=== PATIENT | female | born 1960 | race African-American/Black ===

== ENCOUNTER 2022-01-11 11:51 | Emergency (ER) | payer SELFPAY ==
[~2022-01-11] VITALS: Ht 162.6 cm; Wt 122.7 kg
[2022-01-11] MEDS ORDERED: IBUPROFEN 200 MG TABLET. PO ONE (13:00)
--- NOTE | 2022-01-11 13:35 | PHYS DOC ---
Past Medical History Additional Past Medical Histor: OBESITY Past Surgical History: Hysterectomy Smoking Status: Never Smoker Alcohol Use: None General Adult EDM: Chief Complaint: MECHANICAL FALL HPI: HPI: Patient is a 61 year old female who presents with was [place] [employer] [place] when she was in the bathroom and slipped on some water on the floor. States that she landed more so on her right lower back area. She complains of neck pain. Patient also complains of left knee pain. She was able to get up and ambulate. She denies any loss of bowel bladder, focal weakness, numbness and tingling, hitting her head, syncope, headache, dizziness, chest pain, shortness of air, abdominal pain, nausea, vomiting, diarrhea, recent illness. She rates her pain a throbbing 6 out of 10. She has a history of hysterectomy and obesity. Review of Systems: Review of Systems: Constitutional: Denies fever or chills. [] Eyes: Denies change in visual acuity. [] HENT: Denies nasal congestion or sore throat. [] Respiratory: Denies cough or shortness of breath. [] Cardiovascular: Denies chest pain or edema. [] GI: Denies abdominal pain, nausea, vomiting, bloody stools or diarrhea. [] : Denies dysuria. [] Musculoskeletal: + back pain or + left knee joint pain. + Neck pain [] Integument: Denies rash. [] Neurologic: Denies headache, focal weakness or sensory changes. [] Endocrine: Denies polyuria or polydipsia. [] Lymphatic: Denies swollen glands. [] Psychiatric: Denies depression or anxiety. [] Heart Score: C/O Chest Pain: No Current Medications: Current Medications Medications (Trade) Dose Ordered [facility] Start Time Stop Time Status Last Admin Dose Admin Ibuprofen (Motrin) 600 mg 1X ONCE 01/11/22 13:00 01/11/22 13:01 DC Allergies: Allergies: Allergies Coded Allergies Type Severity Reaction Last Updated Verified sulfamethoxazole Allergy Intermediate PALPITATIONS 01/11/22 Yes trimethoprim Allergy Intermediate PALPITATIONS 01/11/22 Yes Physical Exam: PE: Constitutional: Well developed, well nourished, no acute distress, non-toxic appearance. [] HENT: Normocephalic, atraumatic, bilateral external ears normal, oropharynx moist, no oral exudates, nose normal. [] Eyes: PERRLA, EOMI, conjunctiva normal, no discharge. [] Neck: Normal range of motion, mid neck tenderness, supple, no stridor. [] Cardiovascular:Heart rate regular rhythm, no murmur [] Lungs & Thorax: Bilateral breath sounds clear to auscultation [] Abdomen: Bowel sounds normal, soft, no tenderness, no masses, no pulsatile masses. [] Skin: Warm, dry, no erythema, no rash. [] Back: mid lower back tenderness, no CVA tenderness. [] Extremities: No tenderness, no cyanosis, no clubbing, ROM intact, no edema. [] Neurologic: Alert and oriented X 3, normal motor function, normal sensory func tion, no focal deficits noted. [] Psychologic: Affect normal, judgement normal, mood normal. [] Current Patient Data: Vital Signs: Vital Signs Date Time Temp Pulse Resp B/P (MAP) Pulse Ox O2 Delivery O2 Flow Rate FiO2 01/11/22 12:06 98.2 96 18 167/97 (120) 98 Room Air 98.2 EKG: EKG: [] Radiology/Procedures: Radiology/Procedures: [] Impression: [facility] [address] [place] [address] IMAGING REPORT Signed PATIENT: MARIAA SALEH AACCOUNT: [id number] : 1960 LOCATION: ER AGE: 61 SEX: F EXAM STATUS: PRE ER ORD. PHYSICIAN: LEO MONTES APRN REASON: FALL, PAIN ON LEFT KNEE, ANTERIOR AND MEDIAL SIDE PROCEDURE: KNEE LEFT 4V Left knee 3 views. HISTORY: Fall pain left knee 3 views were taken left knee. There is not evidence of an acute fracture. There is no joint effusion. There is mild spurring on the patella. There is mild spurring and joint space narrowing in the medial joint compartment. IMPRESSION: 1. Mild osteoarthritis left knee. 2. No acute fracture. Electronically signed by: Randy Driscoll MD (01/11/2022 1:30 PM) [facility] DICTATED and SIGNED BY: RANDY DRISCOLL MD DATE: 01/11/22 1329 [facility] [address] [place] [address] IMAGING REPORT Signed PATIENT: MARIAA SALEH AACCOUNT: [id number] : 1960 LOCATION: ER AGE: 61 SEX: F EXAM STATUS: REG ER ORD. PHYSICIAN: LEO MONTES APRN REASON: SLIPPED AND FELL, PAIN PROCEDURE: CT HEAD AND CERVICAL SPINE WO CT HEAD AND C-SPINE WO History: Slip and fall. Pain. Comparison: None. Technique: Noncontrast CT of the head and cervical spine. Findings: CT HEAD: There is no evidence for intracranial mass or hemorrhage. There is no hydrocephalus or midline shift. No abnormal extra-axial fluid collections are present. No evidence of acute territorial infarction. The visualized paranasal sinuses and mastoid air cells are clear. The skull and scalp are within normal limits. CT CERVICAL SPINE: There is no evidence for fracture in the cervical spine. Alignment is normal. Mild degenerative changes of the lower cervical spine with marginal osteophytes and mild disc space narrowing. No destructive osseous lesions are seen. Limited evaluation of the soft tissues of the neck and of the upper chest is unremarkable. Impression: 1. No acute intracranial findings. 2. No acute osseous abnormality in the cervical spine. ------- Exposure: One or more of the following individualized dose reduction techniques were utilized for this examination: 1. Automated exposure control 2. Adjustment of the mA and/or kV according to patient size 3. Use of iterative reconstruction technique. Electronically signed by: Oswaldo Bonner MD (01/11/2022 2:12 PM) [id number] DICTATED and SIGNED BY: OSWALDO BONNER MD DATE: 01/11/22 1403 [facility] [address] [facility] [place] [address] IMAGING REPORT Signed PATIENT: MARIAA SALEH AACCOUNT: [id number] : 1960 LOCATION: ER AGE: 61 SEX: F EXAM STATUS: REG ER ORD. PHYSICIAN: LEO MONTES APRN REASON: SLIPPED AND FELL, PAIN PROCEDURE: CT LUMBAR SPINE WO CONTRAST CT LUMBAR SPINE WO History: Slip and fall. Pain. Technique: Noncontrast CT was performed of the lumbar spine. Multiplanar reconstructions were performed. Comparison: None Findings: Normal vertebral body height and alignment. No fracture. Sacrum and sacroiliac joints are unremarkable. There is facet hypertrophy throughout the lumbar spine greatest at L4-L5 and L5- S1. Mild disc space narrowing at L5-S1. Mild bilateral foraminal stenosis at L5- S1. Visualized paraspinal tissues are unremarkable. Impression: 1. Mild degenerative changes of the lumbar spine without acute osseous abnormality. Exposure: One or more of the following individualized dose reduction techniques were utilized for this examination: 1. Automated exposure control 2. Adjustment of the mA and/or kV according to patient size 3. Use of iterative reconstruction technique. Electronically signed by: Oswaldo Bonner MD (01/11/2022 2:16 PM) [id number] DICTATED and SIGNED BY: OSWALDO BONNER MD DATE: 01/11/221411 Course & Med Decision Making: Course & Med Decision Making Pertinent Labs and Imaging studies reviewed. (See chart for details) See HPI. Alert and oriented x4. Ambulatory with a steady gait. Speaks in full clear sentences. Skin pink warm and dry. There is some focal bony tenderness to the cervical spine and lumbar. No numbness or tingling. No focal weakness. No knee tenderness. Full range of motion of the knee. 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 Cap refill less than 2 seconds. Pedal pulses strong present. Full range of motion of the neck. No deformity to the spine with palpation. No bruising, abrasions, lacerations seen. No trauma to the head or face. Denies LOC. Abdomen soft and nontender. No loss of bowel or bladder. No saddle anesthesia. Neurologically intact. CT and x-ray showed no acute findings. Patient is ambulatory with a steady gait. She is stable. Patient will be discharged home to follow-up with primary care provider. She will be given a knee immobilizer. [] Dragon Disclaimer: Dragyanni Disclaimer: This electronic medical record was generated, in whole or in part, using a voice recognition dictation system. Departure Departure Impression: Primary Impression: Fall Qualified Codes: W19.XXXA - Unspecified fall, initial encounter Additional Impressions: Back pain Qualified Codes: M54.50 - Low back pain, unspecified Knee pain, left Qualified Codes: M25.562 - Pain in left knee Neck pain Disposition: 01 HOME / SELF CARE / HOMELESS Condition: STABLE Referrals: NGHIA CHAVEZ Jr. DO Patient Instructions: Contusion, Fall Prevention and Home Safety, [id number], Knee Pain, Low Back Strain with Rehab-SportsMed Additional Instructions: Follow-up with primary care provider if needed. You can also follow-up with orthopedic for your knee. Medications as prescribed or worsening medications will make you sleepy do not drive, work or operate heavy machinery. If any of your symptoms worsen return emergency room. Scripts Ibuprofen (IBUPROFEN) 600 Mg Tablet 600 MG PO PRN Q6HRS PRN for INFLAMMATION, #30 TAB Prov: LEO MONTES TEST PREPARATION TUTOR 01/11/22 Cyclobenzaprine Hcl (CYCLOBENZAPRINE HCL) 5 Mg Tablet 1 TAB PO TID PRN for MUSCLE PAIN, #30 TAB Prov: LEO MONTES TEST PREPARATION TUTOR 01/11/22 LEO MONTES TEST PREPARATION TUTOR Jan 11, 2022 13:35
[2022-01-11 13:59] LABS: BACTERIA,URINE FEW /HPF (0-FEW); RBC,URINE 0 /HPF (0-2); WBC,URINE 0 /HPF (0-4)
--- NOTE | 2022-01-11 14:15 | RAD ---
CT HEAD AND C-SPINE WO History: Slip and fall. Pain. Comparison: None. Technique: Noncontrast CT of the head and cervical spine. Findings: CT HEAD: There is no evidence for intracranial mass or hemorrhage. There is no hydrocephalus or midline shift. No abnormal extra-axial fluid collections are present. No evidence of acute territorial infarction. The visualized paranasal sinuses and mastoid air cells are clear. The skull and scalp are within normal limits. CT CERVICAL SPINE: There is no evidence for fracture in the cervical spine. Alignment is normal. Mild degenerative changes of the lower cervical spine with marginal osteophytes and mild disc space n arrowing. No destructive osseous lesions are seen. Limited evaluation of the soft tissues of the neck and of the upper chest is unremarkable. Impression: 1. No acute intracranial findings. 2. No acute osseous abnormality in the cervical spine. ------- Exposure: One or more of the following individualized dose reduction techniques were utilized for thi s examination: 1. Automated exposure control 2. Adjustment of the mA and/or kV according to patient size 3. Use of iterative reconstruction technique. Electronically signed by: Oswaldo Guevara MD (01/11/2022 2:12 PM) [id number]
--- NOTE | 2022-01-11 14:19 | RAD ---
CT LUMBAR SPINE WO History: Slip and fall. Pain. Technique: Noncontrast CT was performed of the lumbar spine. Multiplanar reconstructions were perform ed. Comparison: None Findings: Normal vertebral body height and alignment. No fracture. Sacrum and sacroiliac joints are unremarkabl e. There is facet hypertrophy throughout the lumbar spine greatest at L4-L5 and L5-S1. Mild disc space n arrowing at L5-S1. Mild bilateral foraminal stenosis at L5-S1. Visualized paraspinal tissues are unremarkable. Impression: 1. Mild degenerative changes of the lumbar spine without acute osseous abnormality. Exposure: One or more of the following individualized dose reduction techniques were utilized for thi s examination: 1. Automated exposure control 2. Adjustment of the mA and/or kV according to patient size 3. Use of iterative reconstruction technique. Electronically signed by: Oswaldo Guevara MD (01/11/2022 2:16 PM) [id number]
[2022-01-11] MEDS ORDERED: IBUP-1007 PO (14:36)
[2022-01-11] MEDS ORDERED: CYCL5TAB PO (14:36)
[2022-01-11 14:51] VITALS: BP 144/86
== END 2022-01-11 14:53 | disposition home or self-care (01) ==
LOC: ER 11:51
DX: M54.2 Cervicalgia (principal); M25.562 Pain in left knee; M54.50 Low back pain, unspecified; Z88.1 Allergy status to other antibiotic agents; Z88.2 Allergy status to sulfonamides; W01.0XXA Fall on same level from slipping, tripping and stumbling without subsequent striking against object, initial encounter; Y93.89 Activity, other specified; Y92.89 Other specified places as the place of occurrence of the external cause; Y99.8 Other external cause status
CPT/HCPCS: 70450; 72125; 72131; 73564; 81001; 99285-25